=== PATIENT | male | born 1970 | race Caucasian/White ===

== ENCOUNTER 2020-12-10 21:17 | Emergency (ER) | payer OTHER ==
[~2020-12-10 21:17] MED LIST: MYLICON80 MG PO
[2020-12-10 22:30] LABS: BASOPHIL 0.9 % (0-2); EOSINOPHIL 2.7 % (0-5); HCT 41.6 % (42.0-52.0); HGB 14.3 g/dl (13.2-18.0); LYMPHOCYTE 41.3 % (15-48); MCH 30.4 pg (25.0-31.0); MCHC 34.4 g/dL (32.0-36.0); MCV 88.3 fL (78.0-100.0); MONOCYTE 7.1 % (0-12); NRBC 0; PLT 220 K/uL (150-400); RBC 4.71 M/uL (4.70-6.00); RDW 12.1 % (11.5-14.0); WBC 7.5 K/uL (4.0-10.5)
[2020-12-10 22:36] LABS: NEUTROPHIL 47.7 % (41-80)
[2020-12-10 22:45] LABS: ALBUMIN 3.9 g/dL (3.4-5.0); BILIRUBIN - TOTAL 0.5 mg/dL (0.2-1.0); BUN/CREAT RATIO (CALC) 14.7 RATIO; CREATININE 0.95 mg/dL (0.67-1.17); GLOBULIN (CALCULATION) 3.4 g/dL; POTASSIUM 3.9 mmol/L (3.5-5.1); TOTAL PROTEIN 7.3 g/dL (6.4-8.2)
[2020-12-10] MEDS ORDERED: IBUPROFEN800 MG PO (23:53)
[2020-12-10] MEDS ORDERED: ROBAXIN750 MG PO (23:53)
[2020-12-10] MEDS ORDERED: MEDROL 4MG DOSEP4 MG PO (23:53)
[2020-12-10] MEDS ORDERED: NORCO 5-325 TA1 EACH PO (23:53)
== END 2020-12-11 00:19 | disposition home or self-care (01) ==
LOC: FER 21:17
PROVIDERS: Emergency Medicine Emergency Medical Services
DX: M54.6 Pain in thoracic spine (principal); I10 Essential (primary) hypertension; I25.2 Old myocardial infarction; Z79.82 Long term (current) use of aspirin; Z79.899 Other long term (current) drug therapy; Z91.041 Radiographic dye allergy status
CPT/HCPCS: 36415; 71046; 80053; 83690; 84484; 85025; 93005; J1100; J1170; J1885; J2405; J2800; J7050